=== PATIENT | female | born 1950 | race Caucasian/White ===

== ENCOUNTER 2017-03-21 00:06 | Emergency (ER) | payer BC, MEDICARE ==
[~2017-03-21] VITALS: Ht 152.4 cm; Wt 75.6 kg
[~2017-03-21 00:06] MED LIST: BENA1TAB11 PO; CLON0.1T PO; CYCL-259 PO; GABA600T2 PO; OXYC-302 PO; PT WILL BRING LIST; SUMA50TA3 PO; TRAM50TA2 PO; ZOLP5TAB6 PO
[2017-03-21] MEDS ORDERED: LORazepam 1MG TABLET ONE (00:47)
[2017-03-21] MEDS ORDERED: LORazepam 1MG TABLET PO ONE (01:00)
[2017-03-21 01:32] VITALS: BP 171/60
== END 2017-03-21 01:35 | disposition home or self-care (01) ==
LOC: ED 00:31
DX: F41.1 Generalized anxiety disorder (principal); I10 Essential (primary) hypertension
CPT/HCPCS: 99284

== ENCOUNTER → 2020-11-16 | Outpatient (CLI) | payer MEDICARE ==
[~2020-11-16] MED LIST changes: -CLON0.1T PO; +CLON0.1T22 PO; -CYCL-259 PO; +CYCL10TA2 PO; -GABA600T2 PO; +GABA600T7 PO; -OXYC-302 PO; +OXYC1TAB14 PO
== END | disposition home or self-care (01) ==
LOC: CFH 10:29
PROVIDERS: ATTEND Licensed Practical Nurse
DX: Z12.31 Encounter for screening mammogram for malignant neoplasm of breast (principal); R92.1 Mammographic calcification found on diagnostic imaging of breast; N63.10 Unspecified lump in the right breast, unspecified quadrant
CPT/HCPCS: 77063; 77067